=== PATIENT | male | born 1995 | race Caucasian/White ===

== ENCOUNTER 2018-06-23 13:08 | Outpatient (CLI) | payer OTHER ==
[2018-06-23] MEDS ORDERED: Sodium Chloride 0.9% 15 ML NEB ONE (15:00)
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
== END 2018-06-23 13:09 | disposition home or self-care (01) ==
LOC: WCC 13:08
PROVIDERS: ATTEND Family Medicine
DX: T23.201A Burn of second degree of right hand, unspecified site, initial encounter (principal)
CPT/HCPCS: 97602; 99202; A4218; G0463